=== PATIENT | male | born 1970 | race Caucasian/White ===

== ENCOUNTER → 2018-06-19 | Outpatient (CLI) | payer OTHER ==
[2018-06-19 14:45] LABS: BASOPHILS # (AUTO) 0.1 (0.0-0.1); BASOPHILS % 1.1 % (0.0-1.0); EOSINOPHILS # (AUTO) 0.2 (0.0-0.4); EOSINOPHILS % 2.5 % (0.0-6.0); HEMATOCRIT 41.7 % (38.2-49.6); HEMOGLOBIN 14.9 g/dL (14.0-18.0); LYMPHOCYTES # (AUTO) 1.9 (1.0-3.2); LYMPHOCYTES % 22.5 % (18.0-39.1); MEAN CORPUSCULAR HGB CONC 35.7 g/dL (31-35); MEAN CORPUSCULAR VOLUME 89.7 fL (81-99); MONOCYTES # (AUTO) 0.8 (0.2-0.8); MONOCYTES % 9.9 % (4.4-11.3); NEUTROPHILS # (AUTO) 5.4 (2.1-6.9); NEUTROPHILS % 63.5 % (38.7-80.0); PLATELET COUNT 228 x10e3/uL (140-360); RED BLOOD COUNT 4.65 x10e6/uL (4.3-5.7); RED CELL DISTRIBUTION WIDTH 11.7 % (11.7-14.4)
[2018-06-19 15:14] LABS: ALANINE AMINOTRANSFERASE 69 IU/L (0-55); ALBUMIN 4.2 g/dL (3.5-5.0); ALBUMIN/GLOBULIN RATIO 1.3 (0.8-2.0); ALKALINE PHOSPHATASE 72 IU/L (40-150); AMYLASE 58 U/L (25-125); ANION GAP 14.5 mmol/L (8-16); BLOOD UREA NITROGEN 18 mg/dL (7-26); BUN/CREATININE RATIO 17 (6-25); CALCIUM 9.9 mg/dL (8.4-10.2); CARBON DIOXIDE 26 mmol/L (22-29); CHLORIDE 103 mmol/L (98-107); CREATININE, SERUM 1.06 mg/dL (0.72-1.25); EST GLOMERULAR FILTRATION RATE > 60 ML/MIN (60-); GLUCOSE 95 mg/dL (74-118); LIPASE 20 U/L (8-78); POTASSIUM 3.5 mmol/L (3.5-5.1); SODIUM 140 mmol/L (136-145)
== END ==
LOC: LAB 14:11
PROVIDERS: ATTEND Internal Medicine
DX: R10.0 Acute abdomen (principal)
CPT/HCPCS: 36415; 80053; 82150; 83690; 85025

== ENCOUNTER 2018-09-13 13:11 | Emergency (ER) | payer OTHER ==
[~2018-09-13] VITALS: Ht 185.4 cm; Wt 107.5 kg
--- OUTSIDE RECORDS SUMMARY | 2018-09-13 13:14 | XMS REPORT | Clinical Summary ---
Author Author [facility] Organization [place] [facility] Address Unknown Phone Unavailable Care Team Providers Care Laboratory Clerk Name Role Phone Yefri Velazquez MD PCP Allergies Comments Active Allergy Reactions Severity Noted Date "rash" Allopurinol 08/03/2018 Penicillins Anaphylaxis High 08/03/2018 Medications End Date Status Medication Sig Dispensed Refills Start Date Active aspirin (ECOTRIN) 81 MG Take 81 mg by 0 enteric coated tablet mouth daily. Active cyanocobalamin, vitamin Take 1,000 0 B-12, 1,000 mcg capsule mcg by mouth daily. Active hydrALAZINE (APRESOLINE) Take 100 mg 0 100 MG tablet by mouth 2 (two) times a day. Active LORAZepam (ATIVAN) 0.5 MG Take 0.5 mg 0 tablet by mouth daily. Active losartan-hydrochlorothiaz Take 1 tablet 0 siobhan (HYZAAR) 100-25 mg by mouth per tablet daily. Active metoprolol succinate XL Take 100 mg 0 (TOPROL-XL) 100 mg 24 hr by mouth 2 tablet (two) times a day. Active insulin ASPART (NovoLOG) Inject under 0 100 unit/mL injection the skin 3 (three) times a day before meals. Sliding scale Active OMEGA 8-WWX-[id number]-FISH OIL Take by mouth 0 ORAL daily. Active simvastatin (ZOCOR) 40 MG Take 40 mg by 0 tablet mouth nightly. Active insulin GLARGINE (TOUJEO Inject 80 0 SOLOSTAR U-300 INSULIN) Units under 300 unit/mL (1.5 mL) the skin insulin pen daily. Active fenofibrate (TRICOR) 145 Take 145 mg 0 MG tablet by mouth daily. Active dulaglutide (TRULICITY) Inject 1.5 mg 0 1.5 mg/0.5 mL pen under the injector skin every 7 days. Active febuxostat (ULORIC) 80 mg Take 80 mg by 0 tablet mouth daily. Active HYDROcodone-acetaminophen Take 1 tablet 0 (VICODIN HP) 10-300 mg by mouth per tablet every 6 (six) hours as needed for moderate pain. Active colesevelam (WELCHOL) 625 Take 1,875 mg 0 mg tablet by mouth daily. 08/04/2018 Discontinued clindamycin-tretinoin Apply 1 0 (ZIANA) 1.2-0.025 % gel application topically nightly. Active Problems Problem Noted Date Abnormal nuclear stress test 08/04/2018 Hyperlipidemia 08/04/2018 Coronary artery disease 08/04/2018 Diabetes mellitus 08/04/2018 Hypertension 08/04/2018 Presence of drug coated stent in right coronary artery 08/04/2018 Encounters Care Team Description Date Type Specialty Brian White MD CV LEFT HEART CATH LV GRAM WITH CORS [95649 (CPT)] 08/04/2018 Surgery Procedural Cardiology Brian White MD Coronary artery disease involving [place] coronary artery of [place] heart with other form of angina pectoris (HCC) 08/04/2018 Hospital Procedural Cardiology Encounter after 09/12/2017 Social History Date Tobacco Use Types Packs/Day Years Used Quit: 1991 Former Smoker Smokeless Tobacco: Former Quit: 2011 User Alcohol Use Drinks/Week oz/Week Comments Yes 10 Cans of 6.0 beer Sex Assigned at Date Recorded Not on file Industry Job Start Date Occupation Not on file Not on file Not on file Travel End Travel History Travel Start No recent travel history available. Last Filed Vital Signs Time Taken Vital Sign Reading 08/04/2018 11:30 AM FUR STRETCHER Blood Pressure 127/82 08/04/2018 11:30 AM FUR STRETCHER Pulse 90 08/04/2018 8:35 AM FUR STRETCHER Temperature 36.5 C (97.7 F) 08/04/2018 11:30 AM FUR STRETCHER Respiratory Rate 20 08/04/2018 11:30 AM FUR STRETCHER Oxygen Saturation 95% - Inhaled Oxygen - Concentration 08/04/2018 6:42 AM FUR STRETCHER Weight 105 kg (232 lb 1 oz) 08/04/2018 6:42 AM FUR STRETCHER Height 185.4 cm (6' 1") 08/04/2018 6:42 AM FUR STRETCHER Body Mass Index 30.62 Plan of Treatment Not on file Procedures Comments Procedure Name Priority Date/Time Associated Diagnosis POC GLUCOSE Routine 08/04/2018 8:55 AM FUR STRETCHER CV LEFT HEART CATH LV Routine 08/04/2018 Coronary artery disease GRAM WITH CORS 8:19 AM FUR STRETCHER involving [place] coronary artery of [place] heart with other form of angina pectoris (HCC) PROTHROMBIN TIME WITH INR STAT 08/04/2018 7:07 AM FUR STRETCHER HC COMPLETE BLD COUNT STAT 08/04/2018 W/AUTO DIFF 7:07 AM FUR STRETCHER POC GLUCOSE Routine 08/04/2018 6:36 AM FUR STRETCHER ESTIMATED GFR STAT 08/04/2018 6:21 AM FUR STRETCHER BASIC METABOLIC PANEL STAT 08/04/2018 6:21 AM FUR STRETCHER after 09/12/2017 Results * POC glucose (08/04/2018 8:55 AM FUR STRETCHER) Only the most recent of 2 results within the time period is included. POC glucose 130 (H) 65 - 99 mg/dL [facility] Comment: [facility] Notified RN Meter ID: [id number] Rehab Technician: Niru Pollard Performing Organization Address [facility] Cancer Centercode Phone Number [facility] DEPARTMENT OF [address] [place] [address] PATHOLOGY AND GENOMIC MEDICINE [place] [phone] [facility] * Cv sleep lab technologist procedure (08/04/2018 8:19 AM FUR STRETCHER) Cath EF Estimated 60 % [facility] At [facility] L[facility] normal LVEDP normal No gradient across the aortic valve No mitral regurgitation Right dominant coronary circulation Occluded stent in the PL branch of the RCA Left to right and right to right collaterals to the PL branch of the right coronary artery Normal LAD, diagonals Normal circumflex and obtuse marginal branches Performing Organization Address City/[facility]/Zipcode Phone Number [facility] [address] [place] [address] * Prothrombin time with INR (08/04/2018 7:07 AM FUR STRETCHER) Prothrombin time 12.7 11.5 - 14.5 sec [facility] INR 1.0 [place] [facility] Comment: HOSPITAL The International Normalized Ratio (INR) is a therapeutic monitoring tool for patients who are stable on oral anticoagulant therapy. An INR of 2.0-3.0 is suggested for deep vein thrombosis/pulmonary embolism. Specimen Blood Performing Organization Address City/State/Zipcode Phone Number [facility] DEPARTMENT OF [address] [place] [address] PATHOLOGY AND GENOMIC MEDICINE [address] * CBC with platelet and differential (08/04/2018 7:07 AM FUR STRETCHER) WBC 7.74 4.50 - 11.00 k/uL [facility] RBC 4.49 4.40 - 6.00 m/uL [facility] HGB 14.3 14.0 - 18.0 g/dL [facility] HCT 40.2 (L) 41.0 - 51.0 % [facility] MCV 89.5 82.0 - 100.0 fL [facility] MCH 31.8 27.0 - 34.0 pg [facility] MCHC 35.6 31.0 - 37.0 g/dL [facility] RDW - SD 39.9 37.0 - 55.0 fL [facility] MPV 9.9 8.8 - 13.2 fL [facility] Platelet count 238 150 - 400 k/uL [facility] Nucleated RBC 0.00 /100 WBC [facility] Neutrophils 65.7 39.0 - 69.0 % [facility] Lymphocytes 19.8 (L) 25.0 - 45.0 % [facility] Monocytes 10.3 (H) 0.0 - 10.0 % [facility] Eosinophils 2.7 0.0 - 5.0 % [facility] Basophils 1.0 0.0 - 1.0 % [facility] Immature granulocytes 0.5Comment: "Immature 0.0 - 1.0 % [facility] granulocytes" (promyelocytes, HOSPITAL myelocytes, metamyelocytes) Specimen Blood Performing Organization Address City/State/Zipcode Phone Number [facility] DEPARTMENT OF [address] [place] [address] PATHOLOGY AND GENOMIC MEDICINE [address] * Estimated GFR (08/04/2018 6:21 AM FUR STRETCHER) Estimated GFR 82 mL/min/1.73 m2 [facility] Comment: HOSPITAL CatergoryUnitsInte rpretation G1 >=90 Normal or high G2 60-89Mildly decreased [id number] Mildly to moderately decreased [id number] Moderately to severely decreased G4 15-29Severely decreased G5 <15Kidney failure The eGFR was calculated using the Chronic Kidney Disease Epidemiology Collaboration (CKD-EPI) equation. Interpretation is based on recommendations of the National Kidney Foundation-Kidney Disease Outcomes Quality Initiative (NKF-KDOQI) published in 2014. Specimen Plasma specimen Performing Organization Address City/[facility] Centercode Phone Number [facility] [place] [address] PATHOLOGY AND GENOMIC MEDICINE [address] * Basic metabolic panel (08/04/2018 6:21 AM FUR STRETCHER) Sodium 139 135 - 148 mEq/L [facility] Potassium 3.7 3.5 - 5.0 mEq/L [facility] Chloride 101 98 - 112 mEq/L [facility] CO2 21 (L) 24 - 31 mEq/L [facility] Anion gap 17@ANIO (H) 7 - 15 mEq/L [facility] BUN 16 6 - 20 mg/dL [facility] Creatinine 1.05 0.70 - 1.20 mg/dL [facility] Glucose 153 (H) 65 - 99 mg/dL [facility] Calcium 9.7 8.3 - 10.2 mg/dL [facility] Specimen Plasma specimen Performing Organization Address City/[facility] Centercode Phone Number [facility] [place] [address] PATHOLOGY AND [facility] MEDICINE [address] after 09/12/2017 Insurance Payer Benefit Subscriber ID Type Phone Address Plan / Group [facility] xxxxxxxxx HMO/PPO THCARE CHOICE/CHO ICE + Advance Directives Patient has advance care planning documents on file. For more information, jone e contact: [address] [phone]
--- NOTE | 2018-09-13 15:22 | NUR ---
CALLED TO TRIAGE FOR EVALUATION BY DR. RIOS. PATIENT NOT RESPONDING
--- NOTE | 2018-09-13 15:48 | NUR ---
PATIENT CALLED FROM [facility]OBBY. NO ANSWER
== END 2018-09-13 16:20 | disposition left against medical advice (07) ==
LOC: ER 13:11
DX: H57.12 Ocular pain, left eye (principal)

== ENCOUNTER 2018-11-05 08:48 | Emergency (ER) | payer OTHER ==
[~2018-11-05] VITALS: Ht 185.4 cm; Wt 107.5 kg
--- OUTSIDE RECORDS SUMMARY | 2018-11-05 08:52 | XMS REPORT | Clinical Summary ---
Author Author [facility] Organization [place] [facility] Address Unknown Phone Unavailable Care Team Providers Care Aircraft Mechanic Name Role Phone Yefri Velazquez MD PCP [...] day before meals. Sliding scale Active OMEGA 7-[id number]-BJE-FISH OIL Take by mouth 0 ORAL daily. [...] LEFT HEART CATH LV GRAM WITH CORS [[id number] (CPT)] 08/04/2018 Surgery Procedural Cardiology Brian White MD Coronary artery disease involving [place] coronary artery of [place] heart with other form of angina pectoris (HCC) 08/04/2018 Hospital Procedural Cardiology Encounter after 11/04/2017 Social History Date Tobacco Use Types Packs/Day [...] Taken Vital Sign Reading 08/04/2018 11:30 AM RUG SHAMPOOER Blood Pressure 127/82 08/04/2018 11:30 AM RUG SHAMPOOER Pulse 90 08/04/2018 8:35 AM RUG SHAMPOOER Temperature 36.5 C (97.7 F) 08/04/2018 11:30 AM RUG SHAMPOOER Respiratory Rate 20 08/04/2018 11:30 AM RUG SHAMPOOER Oxygen Saturation 95% - Inhaled Oxygen - Concentration 08/04/2018 6:42 AM RUG SHAMPOOER Weight 105 kg (232 lb 1 oz) 08/04/2018 6:42 AM RUG SHAMPOOER Height 185.4 cm (6' 1") 08/04/2018 6:42 AM RUG SHAMPOOER Body Mass Index 30.62 Plan of Treatment Not on file Procedures Comments Procedure Name Priority Date/Time Associated Diagnosis POC GLUCOSE Routine 08/04/2018 8:55 AM RUG SHAMPOOER CV LEFT HEART CATH LV Routine 08/04/2018 Coronary artery disease GRAM WITH CORS 8:19 AM RUG SHAMPOOER involving [place] coronary artery of [place] heart with other form of angina pectoris (HCC) PROTHROMBIN TIME WITH INR STAT 08/04/2018 7:07 AM RUG SHAMPOOER HC COMPLETE BLD COUNT STAT 08/04/2018 W/AUTO DIFF 7:07 AM RUG SHAMPOOER POC GLUCOSE Routine 08/04/2018 6:36 AM RUG SHAMPOOER ESTIMATED GFR STAT 08/04/2018 6:21 AM RUG SHAMPOOER BASIC METABOLIC PANEL STAT 08/04/2018 6:21 AM RUG SHAMPOOER after 11/04/2017 Results * POC glucose (08/04/2018 8:55 AM RUG SHAMPOOER) Only the most recent of 2 results within the time period is included. POC glucose 130 (H) 65 - 99 mg/dL [facility] Comment: [facility] Notified RN Meter ID: [id number] Director Card: Niru Pollard Performing Organization Address [facility] Hospitalcode Phone Number [facility] DEPARTMENT OF [address] [place] [address] PATHOLOGY AND GENOMIC MEDICINE [place] [phone] [facility] * Cv brine room laborer procedure (08/04/2018 8:19 AM RUG SHAMPOOER) Cath EF Estimated 60 % [facility] At [facility] normal LVEDP normal No gradient across the aortic valve No mitral regurgitation Right dominant coronary circulation Occluded stent in the PL branch of the RCA Left to right and right to right collaterals to the PL branch of the right coronary artery Normal LAD, diagonals Normal circumflex and obtuse marginal branches Performing Organization Address City/[facility]/Zipcode Phone Number [facility] [address] [place] [address] * Prothrombin time with INR (08/04/2018 7:07 AM RUG SHAMPOOER) Prothrombin time 12.7 11.5 - 14.[address] [facility] INR 1.0 [place] [facility] Comment: HOSPITAL The International Normalized Ratio (INR) is a therapeutic monitoring tool for patients who are stable on oral anticoagulant therapy. An INR of 2.0-3.0 is suggested for deep vein thrombosis/pulmonary embolism. Specimen Blood Performing Organization Address City/State/Zipcode Phone Number [facility] DEPARTMENT OF [address] [place] [address] PATHOLOGY AND GENOMIC MEDICINE [address] * CBC with platelet and differential (08/04/2018 7:07 AM RUG SHAMPOOER) WBC 7.74 4.50 - 11.00 k/uL [facility] RBC 4.49 4.40 - 6.00 m/uL [facility] HGB 14.3 14.0 - 18.0 g/dL [facility] HCT 40.2 (L) 41.0 - 51.0 % [facility] MCV 89.5 82.0 - 100.[address] [facility] MCH 31.8 27.0 - 34.[address] [facility] MCHC 35.6 31.0 - 37.0 g/dL [facility] RDW - SD 39.9 37.0 - 55.[address] [facility] MPV 9.9 8.8 - 13.[address] [facility] Platelet count 238 150 - 400 k/uL [facility] Nucleated RBC 0.00 /[address] [facility] Neutrophils 65.7 39.0 - 69.0 % [facility] Lymphocytes 19.8 (L) 25.0 - 45.0 % [facility] Monocytes 10.3 (H) 0.0 - 10.0 % [facility] Eosinophils 2.7 0.0 - 5.0 % [facility] Basophils 1.0 0.0 - 1.0 % [facility] Immature granulocytes 0.5Comment: "Immature 0.0 - 1.0 % [facility] granulocytes" (promyelocytes, HOSPITAL myelocytes, metamyelocytes) Specimen Blood Performing Organization Address City/State/Zipcode Phone Number [facility] DEPARTMENT OF [address] [place] [address] PATHOLOGY AND GENOMIC MEDICINE [address] * Estimated GFR (08/04/2018 6:21 AM RUG SHAMPOOER) Estimated GFR 82 mL/min/1.73 m2 [facility] Comment: HOSPITAL CatergoryUnitsInte rpretation G1 >=90 Normal or high G2 60-89Mildly decreased Q2s61-93 Mildly to moderately decreased Q6h00-36 Moderately to severely decreased G4 15-29Severely decreased G5 <15Kidney failure The eGFR was calculated using the Chronic Kidney Disease Epidemiology Collaboration (CKD-EPI) equation. Interpretation is based on recommendations of the National Kidney Foundation-Kidney Disease Outcomes Quality Initiative (NKF-KDOQI) published in 2014. Specimen Plasma specimen Performing Organization Address City/[facility] Hospitalcode Phone Number [facility] [place] [address] PATHOLOGY AND GENOMIC MEDICINE [address] * Basic metabolic panel (08/04/2018 6:21 AM RUG SHAMPOOER) Sodium 139 135 - 148 mEq/L [facility] Potassium 3.7 3.5 - 5.0 mEq/L [facility] Chloride 101 98 - 112 mEq/L [facility] CO2 21 (L) 24 - 31 mEq/L [facility] Anion gap 17@ANIO (H) 7 - 15 mEq/L [facility] BUN 16 6 - 20 mg/dL [facility] Creatinine 1.05 0.70 - 1.20 mg/dL [facility] Glucose 153 (H) 65 - 99 mg/dL [facility] Calcium 9.7 8.3 - 10.2 mg/dL [facility] Specimen Plasma specimen Performing Organization Address City/[facility] Hospitalcode Phone Number [facility] [place] [address] PATHOLOGY AND [facility] MEDICINE [address] after 11/04/2017 Insurance Payer Benefit Subscriber ID Type Phone Address Plan / Group [facility] xxxxxxxxx HMO/PPO THCARE CHOICE/CHO ICE + Advance Directives Patient has advance care planning documents on file. For more information, jone e contact: [address] [address]
== END 2018-11-05 09:25 | disposition home or self-care (01) ==
LOC: FSED 08:48
DX: R51 Headache (principal); T59.811A Toxic effect of smoke, accidental (unintentional), initial encounter; I10 Essential (primary) hypertension; E11.9 Type 2 diabetes mellitus without complications; E78.5 Hyperlipidemia, unspecified
CPT/HCPCS: 99282